=== PATIENT | female | born 1950 | race Caucasian/White ===

== ENCOUNTER 2023-11-07 06:59 | Day surgery (SDC) | payer MEDICARE ==
[2023-11-07] MEDS ORDERED: Xylocaine-Mpf 2% 5 Ml Vial IJ ONE (07:00)
[2023-11-07] MEDS ORDERED: Depo-Medrol 40 MG/ML IM ONE (07:00)
[2023-11-07] MEDS ORDERED: DIPRIVAN 200 MG/20 ML IV ONE (09:54)
--- NOTE | 2023-11-07 11:02 | XRAY ---
Indication: Bilateral L4-S1 MBB. Intraoperative fluoroscopy provided for 19 seconds. 2 digital spot image submitted for interpretation demonstrates posterior needle tips project over the expected left and right L4-S1 nerve roots. Correlate with intraoperative findings/report.
--- NOTE | 2023-11-07 11:03 | XRAY ---
19 seconds of fluoroscopy was used in surgery for a bilateral L4-S1 MBB.
[2023-11-07] MEDS ORDERED: Lactated Ringers 1,000 ML IV ONE (12:12)
== END 2023-11-07 10:25 | disposition home or self-care (01) ==
LOC: SDC-PAIN 06:59
PROVIDERS: ATTEND Psychiatry & Neurology Pain Medicine
DX: M47.816 Spondylosis without myelopathy or radiculopathy, lumbar region (principal); E11.9 Type 2 diabetes mellitus without complications
CPT/HCPCS: 64493; 64494; 72020; 77002; 82947; J1010; J2704

== ENCOUNTER 2024-01-02 15:08 | Day surgery (SDC) | payer MEDICARE ==
[2024-01-02] MEDS ORDERED: Decadron 4 MG INJ IV ONE (15:09)
[2024-01-02] MEDS ORDERED: LIDOCAINE HCL 1% 50 MG/5 ML VL PF IJ ONE (15:09)
[2024-01-02] MEDS ORDERED: Sodium Chloride 0.9(Preservative Free) 10 ML IJ ONE (15:09)
[2024-01-02] MEDS ORDERED: Lactated Ringers 1,000 ML IV ONE (17:13)
--- NOTE | 2024-01-02 18:46 | XRAY ---
Indication: Cervical RIGO. Intraoperative fluoroscopy provided for 23 seconds. 4 digital spot image submitted for interpretation demonstrates posterior needle tip projecting posterior to cervical thoracic junction. Small amount of contrast injected for needle tip placement. Correlate with intraoperative findings/report.
--- NOTE | 2024-01-03 09:14 | XRAY ---
23 seconds of fluoroscopy used in surgery for a cervical RIGO.
== END 2024-01-02 17:05 | disposition home or self-care (01) ==
LOC: SDC-PAIN 15:08
PROVIDERS: ATTEND Psychiatry & Neurology Pain Medicine
DX: M54.12 Radiculopathy, cervical region (principal); E11.9 Type 2 diabetes mellitus without complications
CPT/HCPCS: 62321; 72040; 77003; 82947; J1100; J2001; Q9966

== ENCOUNTER 2024-02-06 07:04 | Day surgery (SDC) | payer MEDICARE ==
[2024-02-06] MEDS ORDERED: Depo-Medrol 40 MG/ML IM ONE (07:05)
[2024-02-06] MEDS ORDERED: BUPIVACAINE 0.5% VIAL IJ ONE (07:05)
[2024-02-06] MEDS ORDERED: DIPRIVAN 200 MG/20 ML IV ONE (08:34)
[2024-02-06] MEDS ORDERED: Lactated Ringers 1,000 ML IV ONE (09:24)
--- NOTE | 2024-02-06 19:52 | XRAY ---
Indication: Bilateral L4-S1 MBB Intraoperative fluoroscopy provided for 14 seconds. Single digital spot image submitted for interpretation demonstrates posterior needle tips projecting over the expected left and right L4-S1 nerve roots. Correlate with intraoperative findings/report.
--- NOTE | 2024-02-06 20:20 | XRAY ---
14 seconds of fluoroscopy was used in surgery for a bilateral L4-S1 MBB.
== END 2024-02-06 09:00 ==
LOC: SDC-PAIN 07:04
PROVIDERS: ATTEND Psychiatry & Neurology Pain Medicine
DX: M47.816 Spondylosis without myelopathy or radiculopathy, lumbar region (principal); E11.9 Type 2 diabetes mellitus without complications
CPT/HCPCS: 64493; 64494; 72020; 77002; 82947; J2704

== ENCOUNTER 2024-03-20 07:33 | Day surgery (SDC) | payer MEDICARE ==
[2024-03-20] MEDS ORDERED: Depo-Medrol 40 MG/ML IM ONE (07:34)
[2024-03-20] MEDS ORDERED: LIDOCAINE HCL 1% AMPUL 5 ML IJ ONE (07:34)
[2024-03-20] MEDS ORDERED: BUPIVACAINE 0.5% VIAL IJ ONE (07:34)
[2024-03-20] MEDS ORDERED: DIPRIVAN 200 MG/20 ML IV ONE (09:08)
[2024-03-20] MEDS ORDERED: SUBLIMAZE 100 MCG/2 ML ONE (09:16)
--- NOTE | 2024-03-20 11:46 | XRAY ---
Indication: Right L4-S1 RFA. Intraoperative fluoroscopy provided for 21 seconds. 3 digital spot image submitted for interpretation demonstrates posterior needle tips projecting over the expected right L4-S1 nerve roots. Correlate with intraoperative findings/report.
--- NOTE | 2024-03-20 11:54 | XRAY ---
21 seconds of fluoroscopy was used in surgery for a right L4-S1 RFA.
== END 2024-03-20 09:45 | disposition home or self-care (01) ==
LOC: SDC-PAIN 07:33
PROVIDERS: ATTEND Psychiatry & Neurology Pain Medicine
DX: M47.816 Spondylosis without myelopathy or radiculopathy, lumbar region (principal); E11.9 Type 2 diabetes mellitus without complications
CPT/HCPCS: 64635; 64636; 72100; 77002; 82947; 99100; J2704; J3010

== ENCOUNTER 2024-03-26 07:23 | Day surgery (SDC) | payer MEDICARE ==
[2024-03-26] MEDS ORDERED: BUPIVACAINE 0.5% VIAL IJ ONE (07:24)
[2024-03-26] MEDS ORDERED: LIDOCAINE HCL 1% AMPUL 5 ML IJ ONE (07:24)
[2024-03-26] MEDS ORDERED: Depo-Medrol 40 MG/ML IM ONE (07:24)
[2024-03-26] MEDS ORDERED: DIPRIVAN 200 MG/20 ML IV ONE (09:20)
--- NOTE | 2024-03-26 11:40 | XRAY ---
Indication: Left L4-S1 RFA. Intraoperative fluoroscopy provided for 20 seconds. 4 digital spot image submitted for interpretation demonstrates posterior needle tips projecting over the expected left L4-S1 nerve roots. Correlate with intraoperative findings/report.
--- NOTE | 2024-03-26 11:44 | XRAY ---
20 seconds of fluoroscopy was used in surgery for a left L4-S1 RFA.
== END 2024-03-26 09:50 | disposition home or self-care (01) ==
LOC: SDC-PAIN 07:23
PROVIDERS: ATTEND Psychiatry & Neurology Pain Medicine
DX: M47.816 Spondylosis without myelopathy or radiculopathy, lumbar region (principal); E11.9 Type 2 diabetes mellitus without complications
CPT/HCPCS: 72100; 77002; 82947; J2704

== ENCOUNTER 2025-01-28 06:51 | Day surgery (SDC) | payer MEDICARE, SELFPAY ==
[2025-01-28] MEDS ORDERED: BUPIVACAINE 0.5% VIAL IJ ONE (06:52)
[2025-01-28] MEDS ORDERED: methylPREDNISolone acetate IM ONE (06:52)
[2025-01-28] MEDS ORDERED: propofoL IV ONE (08:25)
[2025-01-28] MEDS ORDERED: Lactated Ringers 1,000 ML IV ONE (10:39)
--- NOTE | 2025-01-28 11:47 | XRAY ---
Indication: Right shoulder and subacromial bursa injection. Intraoperative fluoroscopy provided for 39 seconds. 4 digital spot image submitted for interpretation demonstrates needle tip projecting over right glenohumeral joint. 2nd needle tip subacromial. Small amount of contrast injected for needle tip placement. Correlate with intraoperative findings/report.
--- NOTE | 2025-01-28 12:13 | XRAY ---
39 seconds of fluoroscopy was used in surgery for a right intra-articular shoulder and subacromial bursa injection.
== END 2025-01-28 09:00 | disposition home or self-care (01) ==
LOC: SDC-PAIN 06:51
PROVIDERS: ATTEND Psychiatry & Neurology Pain Medicine
DX: M19.011 Primary osteoarthritis, right shoulder (principal); E11.9 Type 2 diabetes mellitus without complications; M75.51 Bursitis of right shoulder; M75.21 Bicipital tendinitis, right shoulder